=== PATIENT | female | born 1975 | race Caucasian/White ===

== ENCOUNTER → 2022-07-13 | Outpatient (CLI) | payer OTHER ==
[~2022-07-13] MED LIST: LANTUS SOLOS100 U/ML SC; NOVOLOG FLEX100 U/ML SC; PRENATAL VITAMI1 TAB PO
== END ==
LOC: COL.RAD 13:17
DX: R63.5 Abnormal weight gain (principal); R14.0 Abdominal distension (gaseous); R22.9 Localized swelling, mass and lump, unspecified; Z98.84 Bariatric surgery status; Z90.49 Acquired absence of other specified parts of digestive tract

== ENCOUNTER 2023-01-11 04:01 | Inpatient (IN) | payer OTHER ==
[~2023-01-11] VITALS: Ht 157.5 cm; Wt 114.8 kg
[2023-01-11] MEDS ORDERED: FERROUSAL325 MG PO (04:57)
[2023-01-11 06:18] VITALS: BP 111/75; PULSE 80; TEMP 97.8
--- NOTE | 2023-01-11 06:18 | NUR ---
PATIENT WAS RECEIVED A DIRECT ADMIT FROM [facility].PATIENT IS AOX4.PATIENT IS ON RA.PATIENT DENIES ABD PAIN AND NAUSEA.PATIENT IS A SBA.PATIENT IS NPO.PATIENT IS FROM HOME.SAFETY MEASURES IN PLACE.NO OTHER NEEDS AT THIS TIME.
--- NOTE | 2023-01-11 08:00 | NUR ---
PATIENT IS A&O. VSS. DENIES C/O ABD PAIN OR N/V. PATIENT IS OBESE WITH A HX OF ELISABETH-EN-Y, C-SECTIONS X3, AND MIK. ABD IS ROUND, SOFT AND WITH HYPOACTIVE BOWL SOUNDS. PATIENT ON BOWL REST, NPO. IV FLUIDS INFUSING VIA PUMP INTO RIGHT AC IV. PATIENT REQUESTING TO HAVE LEFT AC IV OUT IT HURTS, DC'D IV SITE AND COVERED WITH GAUZE & COBAN. IV ABX GIVEN PER MAR. PATIENT REPORTS SHE IS PASSING SOME GAS AND HAD LIQUID STOOL X2. HEAD TO TOE ASSESSMENT COMPLETE. SCD'S TO BLE. NO OTHER NEEDS AT THIS TIME. CALL LIGHT IN REACH.
[2023-01-11 08:24] VITALS: BP 112/48; PULSE 81; TEMP 97.9
[2023-01-11 12:00] VITALS: BP 91/48; PULSE 72; TEMP 97.9
--- NOTE | 2023-01-11 13:03 | NUR ---
Initial visit: Pt was resting and content. Pt was pretty sleepy, so product safety and standards engineer let her rest. She did state no needs right now. Pastoral Worker will follow up as needed.
--- NOTE | 2023-01-11 14:05 | NUR ---
AT BEDSIDE. PATIENT REPORTS NO C/O N/V OR ABD PAIN. SHE IS PASSING GAS AND HAD LIQUID STOOLS. ADVANCING DIET TO LIQUIDS, SEE ORDERS. WILL MONITOR TOLERATION.
[2023-01-11 14:21] LABS: BASO # 0.1 K/mm3 (0.0-0.2); BASO % 0.6 % (0.0-2.0); EOS # 0.3 K/mm3 (0.0-0.7); EOS % 3.5 % (0.0-4.0); GRAN # 5.7 K/mm3 (1.4-6.5); GRAN % 67.3 % (42.2-75.2); LYMPH # 1.9 K/mm3 (1.2-3.4); LYMPH % 22.9 % (20.0-51.0); MEAN CELL VOLUME 72 fl (80.0-100.0); MEAN CORPUSCULAR HGB CONC 29 g/dl (33.0-37.0); MEAN PLATELET VOLUME 10.5 fl (7.4-10.4); MONO # 0.5 K/mm3 (0.1-0.6); MONO % 5.3 % (1.7-9.3); PLATELET COUNT 460 K/mm3 (130-400); RED BLOOD COUNT 4.04 M/mm3 (4.10-5.30); REDCELL DISTRIBUTION WIDTH-CV 18.2 % (11.5-14.5)
[2023-01-11 14:24] LABS: HEMATOCRIT 29.1 % (37.0-47.0); HEMOGLOBIN 8.3 g/dl (12.5-16.0); MEAN CORPUSCULAR HEMOGLOBIN 21 pg (27-31)
[2023-01-11 14:46] LABS: CALCIUM 8.5 mg/dL (8.4-10.2); CREATININE, serum 0.66 mg/dL (0.57-1.11); POTASSIUM 3.9 mmol/L (3.5-4.5)
[2023-01-11 16:10] VITALS: BP 105/61; PULSE 74; TEMP 98.1
--- NOTE | 2023-01-11 16:45 | NUR ---
PATIENT TOLERATING LIQUIDS. NO C/O N/V. PATIENT REPORTED HAVING ANOTHER BM, THIS TIME IT WAS SOFT-FORMED. PATIENT STATES "I FEEL FINE" AND WOULD LIKE TO GO HOME TONIGHT. SURGERY CLEARED PATIENT FOR DISCHARGE TONIGHT IF TOLERATING PO LIQUIDS. NOTIFIED HOSPITALIST, SEE ORDERS.
--- NOTE | 2023-01-11 17:30 | NUR ---
PATIENT DISCHARGING HOME VIA AMBULATORY WITH TO PERSONAL VEHICLE. GAVE DISCHARGE INSTRUCTION, DISCUSSED DIET AND F/U APT. ANSWERE QUESTIONS/CONCERNS. IV DC'D AND SITE COVERED WITH GAUZE & COBAN. PATIENT IS DRESSED, PACKED AND DISCHARGED.
== END 2023-01-11 17:30 | disposition home or self-care (01) | DRG 388 ==
LOC: SURG 04:01
PROVIDERS: ADMIT Student in an Organized Health Care Education/Training Program
DX: K56.609 Unspecified intestinal obstruction, unspecified as to partial versus complete obstruction (principal); J18.9 Pneumonia, unspecified organism; E87.1 Hypo-osmolality and hyponatremia; E53.8 Deficiency of other specified B group vitamins; E55.9 Vitamin D deficiency, unspecified; D50.9 Iron deficiency anemia, unspecified; Z90.49 Acquired absence of other specified parts of digestive tract; Z98.84 Bariatric surgery status
CPT/HCPCS: J0456; J0696; J2270; J2405; J7030; J7050